=== PATIENT | female | born 1970 | race Caucasian/White ===

== ENCOUNTER 2018-03-17 22:49 | Emergency (ER) | payer SELFPAY ==
[~2018-03-17] VITALS: Ht 144.8 cm; Wt 52.3 kg
[~2018-03-17 22:49] MED LIST: AZIT250T PO; PRED50TA PO
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
[2018-03-17] MEDS ORDERED: IV RINGERS SOLUTION,LACTATED 1,000 ML IV SCH (23:00)
[2018-03-17] MEDS ORDERED: MVI, ADULT NO.4 WITH VIT K 10 ML, FOLIC ACID SYRINGE for ER 1 MG, THIAMINE INJ 100 MG i... IV ONE ×4 (23:30)
--- NOTE | 2018-03-18 00:03 | RAD ---
Examination: CHEST PA LATERAL History: Chest pain, hx COPD Comparison/Correlation: 04/25/2016 PA and lateral chest x-ray exam Findings: Frontal and lateral views of chest were obtained. Heart size and pulmonary vasculature are normal. No infiltrate or pleural effusion. Bony structures are unremarkable. Surgical clips involve the right upper quadrant. Impression: No active disease. Electronically signed by: Marino Sinha MD (03/18/2018 12:00 AM) [facility] [place]
--- NOTE | 2018-03-18 00:09 | EKG ---
[address] [address] Test Date: 2018-03-18 Test Time: 00:01:11 Pat Name: SONAL JURADO Department: Room: Gender: F Offset Press Operator: TARA : 1970 Requested By: KRISTYN POWELL Order Number: [id number] Reading MD: Tano Romo MD Measurements Intervals [place] Rate: 95 P: 62 MA: 166 QRS: 51 QRSD: 78 T: 30 QT: 330 QTc: 418 Interpretive Statements SINUS RHYTHM Electronically Signed On 03-20-2018 10:16:41 YARN EXAMINER by Tano Romo MD
[2018-03-18 00:57] LABS: BASO % 0 % (0-3); EOS # 0.1 x10^3/uL (0.0-0.7); EOS % 1 % (0-3); HEMATOCRIT 44.5 % (36.0-47.0); HEMOGLOBIN 15.3 g/dL (12.0-15.5); LYMPH # 3.2 x10^3/uL (1.0-4.8); LYMPH % 37 % (24-48); MEAN CORPUSCULAR HEMOGLOBIN 30 pg (25-35); MEAN CORPUSCULAR HGB CONC 34 g/dL (31-37); MEAN CORPUSCULAR VOLUME 88 fL (79-100); MONO # 0.9 x10^3/uL (0.0-1.1); MONO % 10 % (0-9); NEUT # 4.4 x10^3uL (1.8-7.7); NEUT % 52 % (31-73); PLATELET COUNT 248 x10^3/uL (140-400); RED BLOOD COUNT 5.03 x10^6/uL (3.50-5.40); RED CELL DISTRIBUTION WIDTH 12.3 % (11.5-14.5); WHITE BLOOD COUNT 8.6 x10^3/uL (4.0-11.0)
[2018-03-18 01:00] LABS: AMPHETAMINE/METHAMPHETAMINE POS (NEG); BARBITURATES NEG (NEG); BENZODIAZEPINES NEG (NEG); CANNABINOIDS NEG (NEG); COCAINE NEG (NEG); METHADONE NEG (NEG); OPIATES NEG (NEG); PHENCYCLIDINE NEG (NEG)
[2018-03-18] MEDS ORDERED: FOLIC ACID 5 MG/ML SYRINGE for ER IV ONE (01:03)
[2018-03-18] MEDS ORDERED: THIAMINE 200 MG/2 ML VIAL. IV ONE (01:03)
[2018-03-18] MEDS ORDERED: MVI, ADULT NO.4 WITH VIT K 10 ML VIAL IV ONE (01:03)
[2018-03-18 01:05] LABS: ETHANOL < 10 mg/dL (0-10); SALIC 0.9 mg/dL (2.8-20.0)
[2018-03-18 01:11] LABS: BILIRUBIN,URINE NEG (NEG); CLARITY,URINE CLEAR; COLOR,URINE YELLOW; GLUCOSE,URINE NEG (NEG)
[2018-03-18 01:12] LABS: ACETAMIN < 2.0 mcg/mL (10-30)
[2018-03-18 01:12] LABS: BACTERIA,URINE 0 /HPF (0-FEW); NITRITE,URINE NEG (NEG); RBC,URINE 0 /HPF (0-2); SQUAMOUS EPITHELIAL CELL,UR FEW /LPF; UROBILINOGEN,URINE 1 mg/dL (0.2 mg/dL)
[2018-03-18 01:13] LABS: CALCIUM 9.2 mg/dL (8.5-10.1); CREATININE 0.6 mg/dL (0.6-1.0); DIRECT BILIRUBIN 0.3 mg/dL (0.0-0.2); GFR 106.7; MAGNESIUM 1.5 mg/dL (1.8-2.4); POTASSIUM 3.8 mmol/L (3.5-5.1); TOTAL BILIRUBIN 0.5 mg/dL (0.2-1.0); TOTAL PROTEIN 7.8 g/dL (6.4-8.2)
[2018-03-18 01:30] VITALS: BP 150/83
[2018-03-18] MEDS ORDERED: MAGNESIUM HYDROXIDE 2,400 MG/30 ML ORAL.SUSP. PO ONE (01:30)
[2018-03-18] MEDS ORDERED: tylenol (03:35)
[2018-03-18] MEDS ORDERED: folic acid (03:35)
[2018-03-18] MEDS ORDERED: vitamin D (03:35)
[2018-03-18] MEDS ORDERED: calcium (03:35)
[2018-03-18] MEDS ORDERED: fish oil (03:35)
[2018-03-18] MEDS ORDERED: garlic (03:35)
[2018-03-18] MEDS ORDERED: vitamin C (03:35)
[2018-03-18] MEDS ORDERED: UMEC1DIS IH (03:37)
[2018-03-18] MEDS ORDERED: trazodone (03:37)
[2018-03-18] MEDS ORDERED: celebrex (03:37)
[2018-03-18] MEDS ORDERED: nasonex (03:37)
[2018-03-18] MEDS ORDERED: [UNRECOGNIZED DRUG - OTHER] (03:37)
== END 2018-03-18 02:57 | disposition home or self-care (01) ==
LOC: ER 22:49
DX: F23 Brief psychotic disorder (principal); R45.1 Restlessness and agitation; F19.10 Other psychoactive substance abuse, uncomplicated; F15.10 Other stimulant abuse, uncomplicated; F31.9 Bipolar disorder, unspecified; R41.82 Altered mental status, unspecified; Z20.09 Contact with and (suspected) exposure to other intestinal infectious diseases; E83.42 Hypomagnesemia; R74.0 Nonspecific elevation of levels of transaminase and lactic acid dehydrogenase [LDH]; Z86.19 Personal history of other infectious and parasitic diseases; F41.9 Anxiety disorder, unspecified; J45.909 Unspecified asthma, uncomplicated; J44.9 Chronic obstructive pulmonary disease, unspecified; Z88.0 Allergy status to penicillin; Z88.1 Allergy status to other antibiotic agents
CPT/HCPCS: 36415; 71046; 80048; 80076; 80307; 81001; 81025; 82550; 83690; 83735; 83880; 84443; 84484; 85025; 85610; 85730; 93005; 96365; 96366; 99284; G0480; G6039; J7120; 82003

== ENCOUNTER 2018-03-20 02:10 | Emergency (ER) | payer SELFPAY ==
[~2018-03-20] VITALS: Ht 144.8 cm; Wt 52.3 kg
[2018-03-20 02:10] VITALS: BP 111/64
[~2018-03-20 02:10] MED LIST changes: +UMEC1DIS IH; +[UNRECOGNIZED DRUG - OTHER]; +calcium; +celebrex; +fish oil; +folic acid; +garlic; +nasonex; +trazodone; +tylenol; +vitamin C; +vitamin D
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
[2018-03-20] MEDS ORDERED: MVI, ADULT NO.4 WITH VIT K 10 ML, FOLIC ACID SYRINGE for ER 1 MG, THIAMINE INJ 100 MG i... IV ONE ×4 (02:30)
== END 2018-03-20 02:53 | disposition home or self-care (01) ==
LOC: ER 02:10
DX: B83.8 Other specified helminthiases (principal); F22 Delusional disorders; F15.10 Other stimulant abuse, uncomplicated; F19.10 Other psychoactive substance abuse, uncomplicated; Z86.19 Personal history of other infectious and parasitic diseases; F41.9 Anxiety disorder, unspecified; F32.9 Major depressive disorder, single episode, unspecified; J44.9 Chronic obstructive pulmonary disease, unspecified; Z88.0 Allergy status to penicillin; Z88.1 Allergy status to other antibiotic agents
CPT/HCPCS: 99283

== ENCOUNTER → 2018-06-08 | Outpatient (CLI) | payer OTHER ==
--- NOTE | 2018-06-08 15:44 | RAD ---
DATE: 06/08/2018 EXAM: DIGITAL SCREEN BILAT W/CAD HISTORY: Routine screening COMPARISON: 09/09/2015 This study was interpreted with the benefit of Computerized Aided Detection (CAD). Breast Density: HETERO The breast parenchyma is heterogenously dense, which could reduce sensitivity of mammography. Breast parenchyma level C. FINDINGS: No new or enlarging breast densities are seen. Benign type calcifications are present. No suspicious microcalcifications have developed. IMPRESSION: Stable mammograms without evidence of malignancy. BI-RADS CATEGORY: 2 BENIGN FINDING(S) RECOMMENDED FOLLOW-UP: 12M 12 MONTH FOLLOW-UP PQRS compliance statement: Patient information was entered into a reminder system with a target due date for the next mammogram. Mammography is a sensitive method for finding small breast cancers, but it does not detect them all and is not a substitute for careful clinical examination. A negative mammogram does not negate a clinically suspicious finding and should not result in delay in biopsying a clinically suspicious abnormality. "Our facility is accredited by the [employer] Mammography Program."
== END | disposition home or self-care (01) ==
LOC: MAMMO 13:03
PROVIDERS: ATTEND Nurse Practitioner Family
DX: Z12.31 Encounter for screening mammogram for malignant neoplasm of breast (principal)
CPT/HCPCS: 77067

== ENCOUNTER 2019-01-03 07:16 | Emergency (ER) | payer MEDICAID, OTHER ==
[~2019-01-03] VITALS: Ht 144.8 cm; Wt 52.3 kg
[2019-01-03 07:16] VITALS: BP 114/71
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
[2019-01-03] MEDS ORDERED: ACETAMINOPHEN/CODEINE 300/30MG TABLET PO ONE (07:45)
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
[2019-01-03] MEDS ORDERED: OXAP600T2 PO (08:42)
== END 2019-01-03 08:54 | disposition home or self-care (01) ==
LOC: ER 07:16 → EEVIPCON 07:16 → ER 08:54
DX: S00.81XA Abrasion of other part of head, initial encounter (principal); M25.532 Pain in left wrist; M79.632 Pain in left forearm; J44.9 Chronic obstructive pulmonary disease, unspecified; F41.9 Anxiety disorder, unspecified; F17.210 Nicotine dependence, cigarettes, uncomplicated; Z88.0 Allergy status to penicillin; Z88.1 Allergy status to other antibiotic agents; Y08.89XA Assault by other specified means, initial encounter; Y93.89 Activity, other specified; Y92.89 Other specified places as the place of occurrence of the external cause; Y99.8 Other external cause status
CPT/HCPCS: 70450; 70486; 73090; 73110; 99284-25

== ENCOUNTER 2019-01-03 10:40 | Emergency (ER) | payer MEDICAID ==
[~2019-01-03] VITALS: Ht 144.8 cm; Wt 52.3 kg
[~2019-01-03 10:40] MED LIST changes: +OXAP600T2 PO
[2019-01-03] MEDS ORDERED: IV NORMAL SALINE 1,000ML 1,000 ML IV SCH (11:07)
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
[2019-01-03 11:20] LABS: BASO # 0.1 x10^3/uL (0.0-0.2); BASO % 1 % (0-3); EOS % 0 % (0-3); HEMATOCRIT 40.9 % (36.0-47.0); HEMOGLOBIN 13.9 g/dL (12.0-15.5); LYMPH # 1.8 x10^3/uL (1.0-4.8); LYMPH % 23 % (24-48); MEAN CORPUSCULAR HEMOGLOBIN 32 pg (25-35); MEAN CORPUSCULAR HGB CONC 34 g/dL (31-37); MEAN CORPUSCULAR VOLUME 94 fL (79-100); MONO # 0.9 x10^3/uL (0.0-1.1); MONO % 12 % (0-9); NEUT # 5.1 x10^3uL (1.8-7.7); NEUT % 65 % (31-73); PLATELET COUNT 188 x10^3/uL (140-400); RED BLOOD COUNT 4.36 x10^6/uL (3.50-5.40); RED CELL DISTRIBUTION WIDTH 14.1 % (11.5-14.5); WHITE BLOOD COUNT 7.9 x10^3/uL (4.0-11.0)
[2019-01-03 11:28] VITALS: BP 110/69
[2019-01-03 11:32] LABS: ALBUMIN 3.6 g/dL (3.4-5.0); ALBUMIN/GLOBULIN RATIO 0.9 (1.0-1.7); CALCIUM 9.1 mg/dL (8.5-10.1); CREATININE 0.7 mg/dL (0.6-1.0); GFR 88.9; MAGNESIUM 1.9 mg/dL (1.8-2.4); POTASSIUM 3.9 mmol/L (3.5-5.1); TOTAL BILIRUBIN 0.4 mg/dL (0.2-1.0); TOTAL PROTEIN 7.6 g/dL (6.4-8.2)
--- NOTE | 2019-01-03 11:54 | RAD ---
PORTABLE CHEST 1V History: Chest pain Comparison: March 17, 2018 Findings: No consolidation or pleural effusion. Normal heart size. No pneumothorax. Surgical clips right upper quadrant. Impression: 1. No acute cardiopulmonary process. Electronically signed by: Gregorio Vo DO (01/03/2019 11:51 AM) [id number]
--- NOTE | 2019-01-03 13:42 | EKG ---
[address] [address] Test Date: 2019-01-03 Test Time: 10:55:00 Pat Name: SONAL JURADO Department: Room: Gender: F Postdoctoral Scientist: DEBRA : 1970 Requested By: YEE BRICENO Order Number: [id number] Reading MD: Measurements Intervals [place] Rate: 74 P: 74 PA: 146 QRS: 81 QRSD: 68 T: 68 QT: 372 QTc: 418 Interpretive Statements SINUS RHYTHM QRS(T) CONTOUR ABNORMALITY CONSIDER INFERIOR MYOCARDIAL DAMAGE T ABNORMALITY IN ANTEROSEPTAL LEADS ABNORMAL ECG RI6.01 No previous ECG available for comparison
[2019-01-03] MEDS ORDERED: IV NORMAL SALINE 1,000ML 1,000 ML IV ONE (14:15)
[2019-01-03 14:44] LABS: BARBITURATES NEG (NEG); BENZODIAZEPINES NEG (NEG); CANNABINOIDS NEG (NEG); COCAINE NEG (NEG); METHADONE NEG (NEG); OPIATES POS (NEG); PHENCYCLIDINE NEG (NEG)
[2019-01-03 14:45] LABS: AMPHETAMINE/METHAMPHETAMINE POS (NEG)
== END 2019-01-03 14:50 | disposition home or self-care (01) ==
LOC: ER 10:40
DX: R07.89 Other chest pain (principal); J44.9 Chronic obstructive pulmonary disease, unspecified; F31.9 Bipolar disorder, unspecified; F17.210 Nicotine dependence, cigarettes, uncomplicated; Z88.0 Allergy status to penicillin; Z88.1 Allergy status to other antibiotic agents
CPT/HCPCS: 36415; 71045; 80053; 80307; 83690; 83735; 83880; 84484; 85025; 85610; 85730; 93005; 99285-25; J7030

== ENCOUNTER 2019-03-22 19:03 | Emergency (ER) | payer MEDICAID ==
[~2019-03-22] VITALS: Ht 144.8 cm; Wt 43.1 kg
--- NOTE | 2019-03-22 19:51 | PHYS DOC ---
Past History Past Medical History: Anxiety, Asthma, Bipolar, COPD, Depression, Hepatitis, Schizophrenia Past Surgical History: Appendectomy, Cholecystectomy, Tonsillectomy, Tubal ligation Smoking: Cigarettes Alcohol Use: Occasionally Drug Use: Methamphetamine Adult General Chief Complaint Chief Complaint: ABSCESS HPI HPI 48-year-old female presents with concern for lesion on her left buttocks. The patient was seen 6 days ago at urgent care and given a steroid shot was placed on Bactrim. She is with him Bactrim for 2 weeks. She has been taking it as prescribed. She presents tonight because she is wants to make sure that is getting better not getting worse. She cannot see the wound. She denies discharge. She does think that it is getting smaller. She denies fever or chills. The patient has a history of methamphetamine use, but denies recent use. She has no other complaints at this time. Review of Systems Review of Systems Constitutional: Denies fever or chills [] Eyes: Denies change in visual acuity, redness, or eye pain [] HENT: Denies nasal congestion or sore throat [] Respiratory: Denies cough or shortness of breath [] Cardiovascular: No additional information not addressed in HPI [] GI: Denies abdominal pain, nausea, vomiting, bloody stools or diarrhea [] : Denies dysuria or hematuria [] Musculoskeletal: Denies back pain or joint pain [] Integument: Lesion left buttocks[] Neurologic: Denies headache, focal weakness or sensory changes [] Endocrine: Denies polyuria or polydipsia [] All other systems were reviewed and found to be within normal limits, except as documented in this note. Allergies Allergies Allergies Coded Allergies Type Severity Reaction Last Updated Verified Penicillins Allergy Severe 03/18/18 Yes cephalexin Allergy Intermediate 03/18/18 Yes acetaminophen Adverse Reaction Mild heartburn 01/03/19 Yes codeine Adverse Reaction Mild heartburn 01/03/19 Yes Physical Exam Physical Exam Constitutional: Well developed, well nourished, no acute distress, non-toxic appearance. [] HENT: Normocephalic, atraumatic, bilateral external ears normal, oropharynx moist, no oral exudates, nose normal. [] Eyes: PERRLA, EOMI, conjunctiva normal, no discharge. [] Neck: Normal range of motion, no tenderness, supple, no stridor. [] Cardiovascular:Heart rate regular rhythm, no murmur [] Lungs & Thorax: Bilateral breath sounds clear to auscultation [] Abdomen: Bowel sounds normal, soft, no tenderness, no masses, no pulsatile masses. [] Skin: 1.5 cm diameter wound of the left buttocks. Warm, dry, appropriate skin around the wound. Good tissue margins. No evidence of infection.[] Back: No tenderness, no CVA tenderness. [] Extremities: No tenderness, no cyanosis, no clubbing, ROM intact, no edema. [] Neurologic: Alert and oriented X 3, normal motor function, normal sensory function, no focal deficits noted. [] Psychologic: Affect normal, judgement normal, mood normal. [] Current Patient Data Vital Signs Vital Signs Date Time Temp Pulse Resp B/P (MAP) Pulse Ox O2 Delivery O2 Flow Rate FiO2 03/22/19 19:03 98.6 94 16 99 Room Air EKG EKG [] Radiology/Procedures Radiology/Procedures [] Course & Med Decision Making Course & Med Decision Making Pertinent Labs and Imaging studies reviewed. (See chart for details) The patient's wound does appear to be healing. It has good pink margins, without signs of infection or abscess. I advised that she continue to take her Bactrim and just keep the wound clean and covered. She is stable for discharge at this time. [] Dragon Disclaimer Dragon Disclaimer This electronic medical record was generated, in whole or in part, using a voice recognition dictation system. Departure Departure: Impression: Primary Impression: Abscess of buttock, right Disposition: 01 HOME, SELF-CARE Condition: STABLE Referrals: PCP,TOMMY (PCP) Patient Instructions: Abscess, Care After LOUIE MATA DO Mar 22, 2019 19:51
[2019-03-22 19:53] VITALS: BP 137/80
== END 2019-03-22 19:53 | disposition home or self-care (01) ==
LOC: ER 19:03
DX: L02.31 Cutaneous abscess of buttock (principal); J44.9 Chronic obstructive pulmonary disease, unspecified; F20.9 Schizophrenia, unspecified; F41.9 Anxiety disorder, unspecified; F32.9 Major depressive disorder, single episode, unspecified; F17.210 Nicotine dependence, cigarettes, uncomplicated; Z88.0 Allergy status to penicillin; Z88.1 Allergy status to other antibiotic agents; Z88.5 Allergy status to narcotic agent; Z88.6 Allergy status to analgesic agent
CPT/HCPCS: 99281

== ENCOUNTER 2019-08-09 22:35 | Emergency (ER) | payer OTHER ==
[~2019-08-09] VITALS: Ht 144.8 cm; Wt 40.6 kg
--- NOTE | 2019-08-09 22:40 | PHYS DOC ---
Past History Past Medical History: Anxiety, Asthma, Bipolar, COPD, Depression, Hepatitis, Schizophrenia Past Surgical History: Appendectomy, Cholecystectomy, Tonsillectomy, Tubal ligation Smoking: Cigarettes Alcohol Use: Occasionally Drug Use: Methamphetamine General Adult HPI: HPI: "...I was picking up a tool box 2 days ago.. and I got this pain down here... and this bump popped up... I think...I got...a hernia....".." I am not going to stay...I got to go home and take care of my dog 'Michael..'.. Patient is a 49 year old female who presents with above hx and complaints of abdomen pain. Pain is localized right lower abdomen and new lesion that appears to be femoral hernia. Patient states the bulge or lesion occurred 2 days ago when she was lifting a heavy toolbox. Patient reports normal stools and currently passing gas. Patient currently refusing lab draws or x-rays patient has history of previous appendectomy, cholecystectomy and tubal ligations. Patient is also had a tonsillectomy. Patient has past history of anxiety, asthma, bipolar disorder, COPD, bronchitis, hepatitis C and polysubstance abuse. 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 Patient denies any travel outside [facility]. Patient denies any specific ill contacts. Patient does continue to smoke tobacco. Patient did eat prior to arrival. Patient normally follows at [facility] for care. Review of Systems: Review of Systems: Constitutional: Denies fever or chills Eyes: Denies change in visual acuity HENT: Denies nasal congestion or sore throat Respiratory: Denies cough or shortness of breath Cardiovascular: Denies chest pain or edema GI: Complaints abdominal pain. Nausea, vomiting, bloody stools or diarrhea : Denies dysuria Musculoskeletal: Denies back pain or joint pain Integument: Denies rash Neurologic: Denies headache, focal weakness or sensory changes Endocrine: Denies polyuria or polydipsia Lymphatic: Denies swollen glands Psychiatric: Denies depression or anxiety Heart Score: Risk Factors: Risk Factors: DM, Current or recent (<one month) smoker, HTN, HLP, family history of CAD, obesity. Risk Scores: Score 0 - 3: 2.5% MACE over next 6 weeks - Discharge Home Score 4 - 6: 20.3% MACE over next 6 weeks - Admit for Clinical Observation Score 7 - 10: 72.7% MACE over next 6 weeks - Early Invasive Strategies Family History: Family History: Noncontributory to presentation Current Medications: Current Meds: See nursing for home meds Allergies: Allergies: Allergies Coded Allergies Type Severity Reaction Last Updated Verified Penicillins Allergy Severe 03/18/18 Yes cephalexin Allergy Intermediate 03/18/18 Yes acetaminophen Adverse Reaction Mild heartburn 01/03/19 Yes codeine Adverse Reaction Mild heartburn 01/03/19 Yes Physical Exam: PE: Constitutional: Moderate acute distress, non-toxic appearance. [] HENT: Normocephalic, atraumatic, bilateral external ears normal, oropharynx moist, no oral exudates, nose normal. [] Eyes: PERRLA, EOMI, conjunctiva normal, no discharge. [] Neck: Normal range of motion, no tenderness, supple, no stridor. [] Cardiovascular:Heart rate regular rhythm, no murmur [] Lungs & Thorax: Bilateral breath sounds equal apex with scattered wheezes on auscultation [] Abdomen: Bowel sounds normal, soft, right lower quadrant abdomen tenderness, mild distention,, no pulsatile masses.Liver edge. . [Old surgery scars. There is a right lower groin lesion which appears to be a femoral hernia. This area very tender and the hernia or bulge which is approximately 3 x 3 cm could not be reduced. There is rebound pain to the right lower quadrant. Skin: Warm, dry, no erythema, no rash. Multiple tattoos Back: No tenderness, no CVA tenderness. [] Extremities: No tenderness, no cyanosis, no clubbing, ROM intact, no edema. No psoas sign Neurologic: Alert and oriented X 3, normal motor function, normal sensory function, no focal deficits noted. [] DTRs +2 patellar and brachial. Psychologic: Affect anxious, judgement normal, mood normal. Having episodes of pressured speech. EKG: EKG: My interpretation EKG shows a sinus rhythm at 73 bpm. No acute morphology. No findings of acute STEMI or contralateral changes. [] Radiology/Procedures: Radiology/Procedures: [][address] [address] IMAGING REPORT Signed PATIENT: SONAL JURADO MACCOUNT: [id number] : 1970 LOCATION: ER AGE: 49 SEX: F EXAM STATUS: REG ER ORD. PHYSICIAN: KRISTYN POWELL MD REASON: Right sided lower abdomen pain with anterior bulging in area PROCEDURE: ACUTE ABDOMEN SERIES ACUTE ABDOMEN SERIES History: Right-sided lower abdominal pain with anterior bulging. Comparison: AP chest, January 13, 2019. Findings: Frontal chest and supine and upright views of the abdomen. Cardiomediastinal silhouette is normal. There is no pleural effusion or pneumothorax. The lungs are clear. No pneumoperitoneum is identified. No dilated air-filled loops of bowel are seen. Moderate colonic stool in the pelvis. Cholecystectomy clips. Bowel gas pattern is nonobstructive. There appears to be transitional lumbosacral anatomy. IMPRESSION: 1. No acute cardiopulmonary process. 2. Nonobstructive bowel gas pattern. Electronically signed by: Isaac Giraldo MD (08/10/2019 12:18 AM) [id number] DICTATED AND SIGNED BY: ISAAC GIRALDO MD DATE: 08/10/19 0018 CC: CONNIE YEPEZ; KRISTYN POWELL MD ~ Course & Med Decision Making: Course & Med Decision Making Pertinent Labs and Imaging studies reviewed. (See chart for details) Patient insisted on discharge. Patient refusing labs. Patient refusing x-rays. Patient does exhibit UCAR capacity. Pt. advised she could return at any time if she wished to complete her evaluation. Pt to follow up with . 1. Abdomen Pain 2 .Femoral Hernia versus an incisional hernia 3. History of tobacco use 4. History of polysubstance abuse- Pt. + Urine Drug Screen for Methamphetamine tonight. 5. Constipation [] Dragon Disclaimer: Javon Disclaimer: This electronic medical record was generated, in whole or in part, using a voice recognition dictation system. Departure Departure: Disposition: HOME/RESIDENCE PRIOR TO ADM Condition: STABLE Referrals: CONNIE YEPEZ (PCP) Javon Disclaimer This chart was dictated in whole or in part using Voice Recognition software in a busy, high-work load, and often noisy Emergency Department environment. It may contain unintended and wholly unrecognized errors or omissions. Dragon Disclaimer This chart was dictated in whole or in part using Voice Recognition software in a busy, high-work load, and often noisy Emergency Department environment. It may contain unintended and wholly unrecognized errors or omissions. KRISTYN POWELL MD August 09, 2019 22:40
[2019-08-09 23:00] VITALS: BP 128/75
[2019-08-09] MEDS ORDERED: FAMOTIDINE 20 MG/2 ML VIAL IVP ONE (23:00)
[2019-08-09] MEDS ORDERED: KETOROLAC 30 MG/ML VIAL. IVP ONE (23:00)
[2019-08-09] MEDS ORDERED: ONDANSETRON PF 4 MG/2 ML VIAL. IVP ONE (23:00)
[2019-08-09] MEDS ORDERED: IV RINGERS SOLUTION,LACTATED 1,000 ML IV SCH (23:00)
--- NOTE | 2019-08-10 00:21 | RAD ---
ACUTE ABDOMEN SERIES History: Right-sided lower abdominal pain with anterior bulging. Comparison: AP chest, January 13, 2019. Findings: Frontal chest and supine and upright views of the abdomen. Cardiomediastinal silhouette is normal. There is no pleural effusion or pneumothorax. The lungs are clear. No pneumoperitoneum is identified. No dilated air-filled loops of bowel are seen. Moderate colonic stool in the pelvis. Cholecystectomy clips. Bowel gas pattern is nonobstructive. There appears to be transitional lumbosacral anatomy. IMPRESSION: 1. No acute cardiopulmonary process. 2. Nonobstructive bowel gas pattern. Electronically signed by: Isaac Giraldo MD (08/10/2019 12:18 AM) [id number]
[2019-08-10] MEDS ORDERED: MAGNESIUM HYDROXIDE 2,400 MG/30 ML ORAL.SUSP. ONE (00:52)
[2019-08-10 01:08] LABS: BARBITURATES NEG (NEG); BENZODIAZEPINES NEG (NEG); CANNABINOIDS NEG (NEG); COCAINE NEG (NEG); METHADONE NEG (NEG); OPIATES NEG (NEG); PHENCYCLIDINE NEG (NEG)
[2019-08-10 01:10] LABS: AMPHETAMINE/METHAMPHETAMINE POS (NEG)
[2019-08-10 01:16] LABS: COLOR,URINE YELLOW
[2019-08-10 01:17] LABS: BACTERIA,URINE FEW /HPF (0-FEW); BILIRUBIN,URINE NEG (NEG); CLARITY,URINE HAZY; GLUCOSE,URINE NEG (NEG); NITRITE,URINE NEG (NEG); RBC,URINE 0 /HPF (0-2); SQUAMOUS EPITHELIAL CELL,UR MANY /LPF; WBC,URINE >40 /HPF (0-4)
[2019-08-10] MEDS ORDERED: MAGNESIUM HYDROXIDE 2,400 MG/30 ML ORAL.SUSP. PO ONE (01:30)
--- NOTE | 2019-08-10 23:04 | EKG ---
[address] [address] Test Date: 2019-08-10 Test Time: 00:08:27 Pat Name: SONAL JURADO Department: Room: Gender: F Accounts Officer: Liz : 1970 Requested By: KRISTYN POWELL Order Number: [id number] Reading MD: Osmar Lozoya Measurements Intervals [place] Rate: 73 P: 90 OR: 152 QRS: 90 QRSD: 78 T: 84 QT: 358 QTc: 398 Interpretive Statements SINUS RHYTHM Electronically Signed On 08-13-2019 7:49:00 CDT by Osmar Lozoya
== END 2019-08-10 01:00 | disposition left against medical advice (07) ==
LOC: ER 22:35
DX: R10.31 Right lower quadrant pain (principal); F31.9 Bipolar disorder, unspecified; J44.9 Chronic obstructive pulmonary disease, unspecified; F20.9 Schizophrenia, unspecified; F17.210 Nicotine dependence, cigarettes, uncomplicated; Z90.89 Acquired absence of other organs; Z90.49 Acquired absence of other specified parts of digestive tract; Z98.51 Tubal ligation status; Z88.0 Allergy status to penicillin; Z88.1 Allergy status to other antibiotic agents; Z88.5 Allergy status to narcotic agent; Z88.6 Allergy status to analgesic agent
CPT/HCPCS: 36415; 74022; 80307; 81001; 81025; 87086; 93005; 99285-25

== ENCOUNTER 2019-08-10 15:52 | Emergency (ER) | payer OTHER ==
[~2019-08-10] VITALS: Ht 144.8 cm; Wt 40.6 kg
[2019-08-10] MEDS ORDERED: IOHEXOL 240 MG/ML 50ML VIAL. ONE (16:35)
[2019-08-10] MEDS ORDERED: IOHEXOL 300 MG/ML 75 ML VIAL. IV ONE (16:45)
[2019-08-10 17:22] LABS: BASO # 0.1 x10^3/uL (0.0-0.2); BASO % 1 % (0-3); EOS # 0.2 x10^3/uL (0.0-0.7); EOS % 3 % (0-3); HEMATOCRIT 43.8 % (36.0-47.0); HEMOGLOBIN 14.9 g/dL (12.0-15.5); LYMPH % 24 % (24-48); MEAN CORPUSCULAR HEMOGLOBIN 31 pg (25-35); MEAN CORPUSCULAR HGB CONC 34 g/dL (31-37); MEAN CORPUSCULAR VOLUME 92 fL (79-100); MONO # 0.9 x10^3/uL (0.0-1.1); MONO % 11 % (0-9); NEUT % 61 % (31-73); PLATELET COUNT 226 x10^3/uL (140-400); RED BLOOD COUNT 4.74 x10^6/uL (3.50-5.40); RED CELL DISTRIBUTION WIDTH 12.6 % (11.5-14.5); WHITE BLOOD COUNT 8.1 x10^3/uL (4.0-11.0)
[2019-08-10 17:28] LABS: CALCIUM 8.5 mg/dL (8.5-10.1); CREATININE 0.5 mg/dL (0.6-1.0); GFR 130.6; POTASSIUM 4.2 mmol/L (3.5-5.1)
[2019-08-10 17:34] LABS: ALBUMIN 3.3 g/dL (3.4-5.0); TOTAL BILIRUBIN 0.2 mg/dL (0.2-1.0); TOTAL PROTEIN 6.6 g/dL (6.4-8.2)
--- NOTE | 2019-08-10 17:44 | PHYS DOC ---
Past History Past Medical History: Anxiety, Arthritis, Asthma, Bipolar, Cancer, COPD, Depression, Hepatitis, MRSA, Schizophrenia (FARSHAD WEBB DO) Past Surgical History: Appendectomy, Cholecystectomy, Tonsillectomy, Tubal ligation (FARSHAD WEBB DO) Smoking: Cigarettes Alcohol Use: None Drug Use: Methamphetamine (FARSHAD WEBB DO) General Adult EDM: Chief Complaint: ABDOMINAL PAIN HPI: HPI: 49 yo F presents to the ed with c/o "I need surgery, I have a hernia," worsening RLQ pain x 1 week. States she left the ed yesterday AMA to get "things together," is now requesting admission for surgery. ROS: Denies associated fever, chills, nausea, vomiting, melena, hematochezia, sore throat, dyspnea, chest pain, diarrhea, hematuria, rash, leg swelling, cough. (FARSHAD WEBB DO) Review of Systems: Review of Systems: Psychiatric: Denies depression or anxiety (FARSHAD WEBB DO) Current Medications: Current Meds: Current Medications Medications (Trade) Dose Ordered Sig/Gama Start Time Stop Time Status Last Admin Dose Admin Iohexol (Omnipaque 240 Mg/ml) 50 ml STK-MED ONCE 08/10/19 16:35 08/10/19 16:35 DC Iohexol (Omnipaque 300 Mg/ml) 75 ml 1X ONCE 08/10/19 16:45 08/10/19 16:46 DC 08/10/19 16:45 75 ML (FARSHAD WEBB DO) Allergies: Allergies: Allergies Coded Allergies Type Severity Reaction Last Updated Verified Penicillins Allergy Severe 03/18/18 Yes cephalexin Allergy Intermediate 03/18/18 Yes acetaminophen Adverse Reaction Mild heartburn 01/03/19 Yes codeine Adverse Reaction Mild heartburn 01/03/19 Yes (FARSHAD WEBB DO) Physical Exam: PE: Constitutional: Well developed, well nourished, no acute distress-comfortable, thin, non-toxic appearance. [] HENT: Normocephalic, atraumatic, bilateral external ears normal, oropharynx moist, no oral exudates, nose normal. [] Eyes: PERRLA, EOMI, conjunctiva normal, no discharge. [] Neck: Normal range of motion, no tenderness, supple, no stridor. [] Cardiovascular:Heart rate regular rhythm, no murmur [] Lungs & Thorax: Bilateral breath sounds clear to auscultation [] Abdomen: Bowel sounds normal, soft, +right inguinal hernia -not compliant with nay reduction, no masses, no pulsatile masses. [] Skin: Warm, dry, no erythema, no rash. [] Back: No tenderness, no CVA tenderness. [] Extremities: No tenderness, no cyanosis, no clubbing, ROM intact, no edema. [] Neurologic: Alert and oriented X 3, normal motor function, normal sensory function, no focal deficits noted. [] Psychologic: Affect normal, judgement normal, mood normal. [] ([facility],FARSHAD Lopez DO) Current Patient Data: Labs: Laboratory Tests Test 08/10/19 17:00 White Blood Count 8.1 x10^3/uL (4.0-11.0) Red Blood Count 4.74 x10^6/uL (3.50-5.40) Hemoglobin 14.9 g/dL (12.0-15.5) Hematocrit 43.8 % (36.0-47.0) Mean Corpuscular Volume 92 fL (79-100) Mean Corpuscular Hemoglobin 31 pg (25-35) Mean Corpuscular Hemoglobin Concent 34 g/dL (31-37) Red Cell Distribution Width 12.6 % (11.5-14.5) Platelet Count 226 x10^3/uL (140-400) Neutrophils (%) (Auto) 61 % (31-73) Lymphocytes (%) (Auto) 24 % (24-48) Monocytes (%) (Auto) 11 % (0-9) H Eosinophils (%) (Auto) 3 % (0-3) Basophils (%) (Auto) 1 % (0-3) Neutrophils # (Auto) 5.0 x10^3uL (1.8-7.7) Lymphocytes # (Auto) 2.0 x10^3/uL (1.0-4.8) Monocytes # (Auto) 0.9 x10^3/uL (0.0-1.1) Eosinophils # (Auto) 0.2 x10^3/uL (0.0-0.7) Basophils # (Auto) 0.1 x10^3/uL (0.0-0.2) Sodium Level 140 mmol/L (136-145) Potassium Level 4.2 mmol/L (3.5-5.1) Chloride Level 105 mmol/L (98-107) Carbon Dioxide Level 28 mmol/L (21-32) Anion Gap 7 (6-14) Blood Urea Nitrogen 8 mg/dL (7-20) Creatinine 0.5 mg/dL (0.6-1.0) L Estimated GFR (Cockcroft-Gault) 130.6 BUN/Creatinine Ratio 16 (6-20) Glucose Level 109 mg/dL (70-99) H Lactic Acid Level 1.6 mmol/L (0.4-2.0) Calcium Level 8.5 mg/dL (8.5-10.1) Total Bilirubin 0.2 mg/dL (0.2-1.0) Aspartate Amino Transferase (AST) 21 U/L (15-37) Alanine Aminotransferase (ALT) 36 U/L (14-59) Alkaline Phosphatase 65 U/L (46-116) Total Protein 6.6 g/dL (6.4-8.2) Albumin 3.3 g/dL (3.4-5.0) L Albumin/Globulin Ratio 1.0 (1.0-1.7) ([facility] Radiology/Procedures: Radiology/Procedures: AGING REPORT Signed PATIENT: SONAL JURADO MACCOUNT: [id number] : 1970 LOCATION: ER AGE: 49 SEX: F EXAM STATUS: REG ER ORD. PHYSICIAN: KRISTYN POWELL MD REASON: Right sided lower abdomen pain with anterior bulging in area PROCEDURE: ACUTE ABDOMEN SERIES ACUTE ABDOMEN SERIES History: Right-sided lower abdominal pain with anterior bulging. Comparison: AP chest, January 13, 2019. Findings: Frontal chest and supine and upright views of the abdomen. Cardiomediastinal silhouette is normal. There is no pleural effusion or pneumothorax. The lungs are clear. No pneumoperitoneum is identified. No dilated air-filled loops of bowel are seen. Moderate colonic stool in the pelvis. Cholecystectomy clips. Bowel gas pattern is nonobstructive. There appears to be transitional lumbosacral anatomy. IMPRESSION: 1. No acute cardiopulmonary process. 2. Nonobstructive bowel gas pattern. Electronically signed by: Isaac Girlado MD (08/10/2019 12:18 AM) [id number] DICTATED AND SIGNED BY: ISAAC GIRALDO MD DATE: 08/10/19 0018 CC: CONNIE YEPEZ; KRISTYN POWELL MD ~ Impressions: Concern for right inguinal hernia, not compliant with manual reduction. Pt afebrile, no leukocytosis or lactic acidosis. Pt calm and in no distress. CT abd/pel pending given surgical history, r/o necrotic bowel. Abdominal series yesterday unremarkable. Pt signed out to Dr. Jacinto at shift change. ([facility],FARSHAD Lopez DO) Impressions: CT scan of the abdomen and pelvis with contrast 08/10/2019 CLINICAL HISTORY: Lower abdominal pain. TECHNIQUE: After the oral and intravenous ministration contrast, contiguous, 5 mm axial sections were obtained through the abdomen and pelvis. 75 cc of Omnipaque 300 were administered intravenously during this examination. One or more of the following individualized dose reduction techniques were utilized for this study: 1. Automated exposure control. 2. Adjustment of the mA and/or kV according to patient size. 3. Use of iterative reconstruction technique. FINDINGS: Images through the lung bases are within normal limits. The liver, spleen, pancreas, adrenal glands and left kidney are within normal limits. A rounded low-attenuation lesion is seen projecting anteriorly from the midpole of the right kidney. This measures 7.4 cm in length. It likely represents a simple cyst. No further imaging workup is recommended. The abdominal aorta tapers normally. Several clips are seen within the gallbladder fossa consistent with a cholecystectomy. No free fluid or free air is seen within the abdomen. There is no evidence of bowel obstruction. Air and stool are seen throughout the colon. The cecum extends into the pelvis. The appendix is not visualized. No inflammatory changes are seen surrounding the cecum. Images through the pelvis demonstrate the urinary bladder distended with contrast and urine. No adnexal mass is seen. An oval-shaped fluid-filled structure is seen in the right superior inguinal region which measures 4.5 cm in greatest diameter. This may represent a fluid-filled right inguinal hernia sac. Clinical correlation is recommended. Calcifications are seen within the pelvis consistent with phleboliths. Minimal S-shaped curvature of the thoracolumbar spine is seen. IMPRESSION: 4.5 cm oval-shaped low-attenuation structure is seen in the right inguinal region which may represent a fluid-filled right inguinal hernia. Clinical correlation is recommended. Electronically signed by: William Peters MD (08/10/2019 6:59 PM) [id number] DICTATED AND SIGNED BY: WILLIAM PETERS MD DATE: 08/10/19 1859 CC: CONNIE YEPEZ; FARSHAD WEBB DO ~ (LOUIE MATA DO) Course & Med Decision Making: Course & Med Decision Making Pertinent Labs and Imaging studies reviewed. (See chart for details) [] (FARSHAD WEBB DO) Course & Med Decision Making Patient appears to have a fluid-filled right inguinal hernia. There is no sign of bowel obstruction. See official read for more details. The patient's labs are unremarkable. She does not emergently need surgery. This is still an elective surgery situation. I have explained this to the patient. She is stable for discharge at this time. (LOUIE MATA DO) Dragon Disclaimer: Dragon Disclaimer: This electronic medical record was generated, in whole or in part, using a voice recognition dictation system. (FARSHAD WEBB DO) Departure Departure: Impression: Primary Impression: Right inguinal hernia Disposition: HOME, SELF-CARE Condition: STABLE Referrals: CONNIE YEPEZ (PCP) Patient Instructions: Inguinal Hernia, Adult FARSHAD WEBB DO August 10, 2019 17:44 LOUIE MATA DO August 10, 2019 19:09
--- NOTE | 2019-08-10 19:02 | RAD ---
CT scan of the abdomen and pelvis with contrast 08/10/2019 CLINICAL HISTORY: Lower abdominal pain. TECHNIQUE: After the oral and intravenous ministration contrast, contiguous, 5 mm axial sections were obtained through the abdomen and pelvis. 75 cc of Omnipaque 300 were administered intravenously during this examination. One or more of the following individualized dose reduction techniques were utilized for this study: 1. Automated exposure control. 2. Adjustment of the mA and/or kV according to patient size. 3. Use of iterative reconstruction technique. FINDINGS: Images through the lung bases are within normal limits. The liver, spleen, pancreas, adrenal glands and left kidney are within normal limits. A rounded low-attenuation lesion is seen projecting anteriorly from the midpole of the right kidney. This measures 7.4 cm in length. It likely represents a simple cyst. No further imaging workup is recommended. The abdominal aorta tapers normally. Several clips are seen within the gallbladder fossa consistent with a cholecystectomy. No free fluid or free air is seen within the abdomen. There is no evidence of bowel obstruction. Air and stool are seen throughout the colon. The cecum extends into the pelvis. The appendix is not visualized. No inflammatory changes are seen surrounding the cecum. Images through the pelvis demonstrate the urinary bladder distended with contrast and urine. No adnexal mass is seen. An oval-shaped fluid-filled structure is seen in the right superior inguinal region which measures 4.5 cm in greatest diameter. This may represent a fluid-filled right inguinal hernia sac. Clinical correlation is recommended. Calcifications are seen within the pelvis consistent with phleboliths. Minimal S-shaped curvature of the thoracolumbar spine is seen. IMPRESSION: 4.5 cm oval-shaped low-attenuation structure is seen in the right inguinal region which may represent a fluid-filled right inguinal hernia. Clinical correlation is recommended. Electronically signed by: William Peters MD (08/10/2019 6:59 PM) [id number]
[2019-08-10 19:20] VITALS: BP 100/57
== END 2019-08-10 19:28 | disposition home or self-care (01) ==
LOC: ER 15:52
DX: K40.90 Unilateral inguinal hernia, without obstruction or gangrene, not specified as recurrent (principal); R10.31 Right lower quadrant pain; F41.9 Anxiety disorder, unspecified; M19.90 Unspecified osteoarthritis, unspecified site; J44.9 Chronic obstructive pulmonary disease, unspecified; F32.9 Major depressive disorder, single episode, unspecified; F20.9 Schizophrenia, unspecified; F17.210 Nicotine dependence, cigarettes, uncomplicated; F15.90 Other stimulant use, unspecified, uncomplicated; Z90.49 Acquired absence of other specified parts of digestive tract; Z90.89 Acquired absence of other organs; Z98.51 Tubal ligation status; Z85.9 Personal history of malignant neoplasm, unspecified; Z88.0 Allergy status to penicillin; Z88.6 Allergy status to analgesic agent; Z88.5 Allergy status to narcotic agent; Z88.2 Allergy status to sulfonamides
CPT/HCPCS: 36415; 74177; 80053; 83605; 85025; 99285; Q9967

== ENCOUNTER 2020-08-16 04:51 | Emergency (ER) | payer OTHER ==
[~2020-08-16] VITALS: Ht 144.8 cm; Wt 40.6 kg
--- NOTE | 2020-08-16 05:06 | PHYS DOC ---
Past History Past Medical History: Anxiety, Arthritis, Asthma, Bipolar, Cancer, COPD, Depression, Hepatitis, MRSA, Schizophrenia Past Surgical History: Appendectomy, Cholecystectomy, Tonsillectomy, Tubal ligation Smoking: Cigarettes Alcohol Use: None Drug Use: Methamphetamine Adult General Chief Complaint Chief Complaint: GROIN PAIN HPI HPI Patient is a 50-year-old female with a past medical history significant for right-sided inguinal hernia presents with right-sided inguinal pain. States she has had this since last January and has talked to her primary care physician about seeing a surgeon as an outpatient and is in the process of setting that up to get this hernia repaired. 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 States it is not as big as it used to be but it is causing her some discomfort. Denies any chest pain, shortness of breath, abdominal pain, nausea, vomiting. Denies any dysuria, hematuria, blood in the stool. States she is having normal urination and bowel movements. States that it has been there since January and has not really gone back in. Review of Systems Review of Systems Review of systems otherwise unremarkable except noted in HPI Allergies Allergies Allergies Coded Allergies Type Severity Reaction Last Updated Verified Penicillins Allergy Severe 03/18/18 Yes cephalexin Allergy Intermediate 03/18/18 Yes acetaminophen Adverse Reaction Mild heartburn 01/03/19 Yes codeine Adverse Reaction Mild heartburn 01/03/19 Yes Physical Exam Physical Exam Constitutional: Well developed, well nourished, no acute distress, non-toxic appearance. [] Cardiovascular:Heart rate regular rhythm, no murmur [] Lungs & Thorax: Bilateral breath sounds clear to auscultation [] Abdomen: Bowel sounds normal, soft, tenderness in the right inguinal region, apparent small, soft, mobile mass, approximately 2 cm in circumference with some reducibility but not completely reducible Skin: Warm, dry, no erythema, no rash. [] Back: No tenderness, no CVA tenderness. [] Extremities: No tenderness, no cyanosis, no clubbing, ROM intact, no edema. [] Neurologic: Alert and oriented X 3,no focal deficits noted. [] Psychologic: Affect normal, judgement normal, mood normal. [] EKG EKG [] Radiology/Procedures Radiology/Procedures [] EXAM: CT pelvis with contrast. HISTORY: Right inguinal hernia. TECHNIQUE: CT of the pelvis was performed after the intravenous administration of iodinated contrast. One or more of the following individualized dose red uction techniques were utilized for this examination: 1. Automated exposure control. 2. Adjustment of the mA and/or kV according to patient size. 3. Use of iterative reconstruction technique. COMPARISON: 08/10/2019. FINDINGS: A right renal cyst measures 7 cm. Stool throughout the right colon is consistent with at least mild constipation. There are no pathologically enlarged lymph nodes. Bone windows reveal no suspicious lesions. A small right inguinal hernia contains indurated fat suggesting vascular congestion. IMPRESSION: 1. Small right inguinal hernia contains edematous fat. Correlate for vascular compromise. 2. Correlate for constipation. Electronically signed by: Shekhar Elliott MD (08/16/2020 5:44 AM) [facility] Heart Score C/O Chest Pain: No Risk Factors: Risk Factors: DM, Current or recent (<one month) smoker, HTN, HLP, family history of CAD, obesity. Risk Scores: Risk Factors: DM, Current or recent (<one month) smoker, HTN, HLP, family history of CAD, obesity. Course & Med Decision Making Course & Med Decision Making Patient is a 50-year-old female who presents with pain at the site of her right inguinal hernia for couple of days Vital signs not concerning. Physical exam noted above. Patient given fentanyl for pain. Laboratory analysis not concerning. Imaging noted above with small right fat-containing inguinal hernia. After pain medication, hernia reducible. Discussed all findings with patient and recommended follow-up as soon as she can with her primary care physician and continue her process of outpatient surgical repair. Also gave strict return precautions to the emergency department. Patient grateful, verbalized understanding and agreed with plan of discharge. Dragon Disclaimer Dragon Disclaimer This electronic medical record was generated, in whole or in part, using a voice recognition dictation system. Departure Departure: Impression: Primary Impression: Inguinal hernia Additional Impression: Constipation Disposition: HOME / SELF CARE / HOMELESS Condition: GOOD Referrals: CONNIE YEPEZ (PCP) Patient Instructions: Constipation, Adult, Inguinal Hernia, Adult Additional Instructions: Please read all the attached information above very carefully. Your laboratory analysis was reassuring. Your CT did show a small right-sided inguinal hernia that was containing some fat. You are given pain medicine while in the emergency department and your hernia was reducible as discussed. Please follow- up with your primary care physician as soon as you can to discuss your ED visit and continue your process of outpatient inguinal hernia repair. Please come back to the emergency department immediately with new or concerning symptoms as discussed. Problem Qualifiers LILLY BOLES MD August 16, 2020 05:06
[2020-08-16] MEDS ORDERED: CONTRAST GIVEN. MC PRN (05:15)
[2020-08-16] MEDS ORDERED: IOHEXOL 300 MG/ML 75 ML VIAL. IV ONE (05:15)
[2020-08-16 05:41] LABS: BASO # 0.1 x10^3/uL (0.0-0.2); BASO % 1 % (0-3); CALCIUM 8.6 mg/dL (8.5-10.1); CREATININE 0.6 mg/dL (0.6-1.0); EOS % 0 % (0-3); GFR 105.4; HEMATOCRIT 43.3 % (36.0-47.0); HEMOGLOBIN 14.9 g/dL (12.0-15.5); LYMPH # 2.1 x10^3/uL (1.0-4.8); LYMPH % 25 % (24-48); MEAN CORPUSCULAR HEMOGLOBIN 31 pg (25-35); MEAN CORPUSCULAR HGB CONC 34 g/dL (31-37); MEAN CORPUSCULAR VOLUME 91 fL (79-100); MONO # 0.8 x10^3/uL (0.0-1.1); MONO % 10 % (0-9); NEUT # 5.4 x10^3uL (1.8-7.7); NEUT % 64 % (31-73); PLATELET COUNT 249 x10^3/uL (140-400); POTASSIUM 3.8 mmol/L (3.5-5.1); RED BLOOD COUNT 4.77 x10^6/uL (3.50-5.40); RED CELL DISTRIBUTION WIDTH 13.2 % (11.5-14.5); WHITE BLOOD COUNT 8.5 x10^3/uL (4.0-11.0)
--- NOTE | 2020-08-16 05:46 | RAD ---
EXAM: CT pelvis with contrast. HISTORY: Right inguinal hernia. TECHNIQUE: CT of the pelvis was performed after the intravenous administration of iodinated contrast. One or more of the following individualized dose reduction techniques were utilized for this examina tion: 1. Automated exposure control. 2. Adjustment of the mA and/or kV according to patient size. 3. Use of iterative reconstruction technique. COMPARISON: 08/10/2019. FINDINGS: A right renal cyst measures 7 cm. Stool throughout the right colon is consistent with at le ast mild constipation. There are no pathologically enlarged lymph nodes. Bone windows reveal no suspi cious lesions. A small right inguinal hernia contains indurated fat suggesting vascular congestion. IMPRESSION: 1. Small right inguinal hernia contains edematous fat. Correlate for vascular compromise. 2. Correlate for constipation. Electronically signed by: Shekhar Elliott MD (08/16/2020 5:44 AM) [facility]
[2020-08-16 05:55] VITALS: BP 122/84
== END 2020-08-16 05:57 | disposition home or self-care (01) ==
LOC: ER 04:51
DX: K40.90 Unilateral inguinal hernia, without obstruction or gangrene, not specified as recurrent (principal); K59.00 Constipation, unspecified; J44.9 Chronic obstructive pulmonary disease, unspecified; F17.210 Nicotine dependence, cigarettes, uncomplicated; F15.10 Other stimulant abuse, uncomplicated; Z88.0 Allergy status to penicillin; Z88.1 Allergy status to other antibiotic agents; Z90.49 Acquired absence of other specified parts of digestive tract; Z98.51 Tubal ligation status
CPT/HCPCS: 36415; 72193; 80048; 83605; 85025; 96372; 99285; J3010; Q9967

== ENCOUNTER 2021-05-04 01:14 | Emergency (ER) | payer MEDICARE, OTHER ==
[~2021-05-04] VITALS: Ht 144.8 cm; Wt 40.6 kg
[2021-05-04 01:14] VITALS: BP 124/79
--- NOTE | 2021-05-04 01:27 | PHYS DOC ---
Past History Past Medical History: Anxiety, Arthritis, Asthma, Bipolar, Cancer, COPD, Depression, Hepatitis, MRSA, Schizophrenia Past Surgical History: Appendectomy, Cholecystectomy, Tonsillectomy, Tubal ligation Smoking: Cigarettes Alcohol Use: None Drug Use: Methamphetamine General Adult EDM: Chief Complaint: BACK PAIN OR INJURY HPI: HPI: ".. I got this spot top .. my butt crack... I wanted to make sure .. I dont have have MRSA abscess... " Patient is a 50 year old female who presents with multiple compliants of area of skin breakdown the top of her gluteal crease. Patient in fact does have a small skin tear at that location. No pointing abscess. No surrounding cellulitis. Patient has history of multiple complaints in the past. Has known for her past medical history of anxiety, asthma, bipolar disorder, COPD, hepatitis, body lice,, MRSA, and methamphetamine abuse. Patient has past surgical history of appendectomy, cholecystectomy, . Tubal ligation, tonsillectomy, and occasional I&D of MRSA abscesses. Patient denies any recent travel outside the [place] area.. Patient denies any specific ill contacts. Patient denies any sick history immunosuppression. Patient does smoke tobacco. Review of Systems: Review of Systems: Constitutional: Denies fever or chills Eyes: Denies change in visual acuity HENT: Denies nasal congestion or sore throat Respiratory: Denies cough or shortness of breath Cardiovascular: Denies chest pain or edema GI: Denies abdominal pain, nausea, vomiting, bloody stools or diarrhea : Denies dysuria Musculoskeletal: Denies back pain or joint pain Integument: Complains of skin lesion Neurologic: Denies headache, focal weakness or sensory changes Endocrine: Denies polyuria or polydipsia Lymphatic: Denies swollen glands Psychiatric: Denies depression or anxiety Family History: Family History: Noncontributory to presentation. Current Medications: Current Meds: See nursing for home meds Allergies: Allergies: Allergies Coded Allergies Type Severity Reaction Last Updated Verified Penicillins Allergy Severe 03/18/18 Yes cephalexin Allergy Intermediate 03/18/18 Yes acetaminophen Adverse Reaction Mild heartburn 01/03/19 Yes codeine Adverse Reaction Mild heartburn 01/03/19 Yes Physical Exam: PE: Constitutional: no acute distress, non-toxic appearance. [] HENT: Normocephalic, atraumatic, bilateral external ears normal, oropharynx moist, no oral exudates, nose normal. [] Eyes: PERRLA, EOMI, conjunctiva normal, no discharge. [] Neck: Normal range of motion, no tenderness, supple, no stridor. [] Cardiovascular:Heart rate regular rhythm, no murmur [] Lungs & Thorax: Bilateral breath sounds to apex with scattered wheezes on auscultation [] Abdomen: Bowel sounds normal, soft, no tenderness, no masses, no pulsatile masses. Surgery scars. Skin: Warm, dry, no erythema, no rash. Small skin tear top of gluteal crease. No pointing abscess. No findings of extensive cellulitis at this location. Back: No tenderness, no CVA tenderness. [] Extremities: No tenderness, no cyanosis, no clubbing, ROM intact, no edema. [] Neurologic: Alert and oriented X 3, normal motor function, normal sensory function, no focal deficits noted. [] Psychologic: Affect anxious, judgement normal, mood normal. [] EKG: EKG: [] Radiology/Procedures: Radiology/Procedures: [] Heart Score: C/O Chest Pain: N/A Risk Factors: Risk Factors: DM, Current or recent (<one month) smoker, HTN, HLP, family history of CAD, obesity. Risk Scores: Score 0 - 3: 2.5% MACE over next 6 weeks - Discharge Home Score 4 - 6: 20.3% MACE over next 6 weeks - Admit for Clinical Observation Score 7 - 10: 72.7% MACE over next 6 weeks - Early Invasive Strategies Course & Med Decision Making: Course & Med Decision Making Pertinent Labs and Imaging studies reviewed. (See chart for details) Patient keep area of gluteal and skin tear clean with frequent washing. Apply Polysporin 4 times a day. Follow-up primary care. Return if any concerns. Impression: 1. Skin tear [] Dragon Disclaimer: Javon Disclaimer: This electronic medical record was generated, in whole or in part, using a voice recognition dictation system. Departure Departure: Referrals: SAMUEL SELBY (PCP) Javon Disclaimer This chart was dictated in whole or in part using Voice Recognition software in a busy, high-work load, and often noisy Emergency Department environment. It may contain unintended and wholly unrecognized errors or omissions. KRISTYN POWELL MD May 04, 2021 01:27
== END 2021-05-04 01:50 | disposition home or self-care (01) ==
LOC: ER 01:14
DX: S31.811A Laceration without foreign body of right buttock, initial encounter (principal); F31.9 Bipolar disorder, unspecified; J44.9 Chronic obstructive pulmonary disease, unspecified; F20.9 Schizophrenia, unspecified; F17.210 Nicotine dependence, cigarettes, uncomplicated; X58.XXXA Exposure to other specified factors, initial encounter; Y93.89 Activity, other specified; Y92.89 Other specified places as the place of occurrence of the external cause; Y99.8 Other external cause status
CPT/HCPCS: 99282

== ENCOUNTER 2021-08-30 20:08 | Emergency (ER) | payer MEDICARE, OTHER | END 2021-08-30 20:37 | disposition left against medical advice (07) | LOC: ER 20:08 | DX: L02.91 Cutaneous abscess, unspecified (principal); Z53.21 Procedure and treatment not carried out due to patient leaving prior to being seen by health care provider ==